=== PATIENT | male | born 1960 | race Caucasian/White ===

== ENCOUNTER 2018-08-19 14:16 | Emergency (ER) | payer BC ==
[~2018-08-19] VITALS: Ht 180.3 cm; Wt 70.0 kg
[~2018-08-19 14:16] MED LIST: ALPR0.5T PO; AMLO5TAB4 PO
[2018-08-19 14:20] VITALS: BP 160/89; PULSE 90; RESP 18; Ht 180.3 cm; Wt 70.0 kg
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
== END 2018-08-19 14:50 | disposition home or self-care (01) ==
LOC: E/R 14:16
DX: F41.1 Generalized anxiety disorder (principal); I16.0 Hypertensive urgency
CPT/HCPCS: 99282

== ENCOUNTER → 2018-09-08 | Emergency (ER) | payer BC ==
[~2018-09-08] VITALS: Ht 188 cm; Wt 82.6 kg
[~2018-09-08] MED LIST changes: +LORA1TAB PO; +LORAZEPAM 1 MG TAB PO ONE
[2018-09-08 06:02] VITALS: RESP 20; Ht 188 cm; Wt 82.6 kg
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
[2018-09-08 06:54] VITALS: BP 142/79; PULSE 79
== END | disposition home or self-care (01) ==
LOC: E/R 05:48
DX: F41.9 Anxiety disorder, unspecified (principal); I10 Essential (primary) hypertension
CPT/HCPCS: 99283; Z7610